=== PATIENT | male | born 1985 | race African-American/Black ===

== ENCOUNTER 2018-10-22 05:06 | Emergency (ER) | payer OTHER, BC ==
[2018-10-22] MEDS: HYDROCODONE/APAP (10/325) TAB PO (05:34)
[2018-10-22] MEDS: ONDANSETRON (ODT) 4 MG TAB ODT (05:34)
[2018-10-22 05:38] LABS: ADD UMIC YES; UR ASCORBIC ACID NEGATIVE (NEGATIVE); UR BILIRUBIN (Dip) NEGATIVE (NEGATIVE); UR BLOOD (Dip) 1+ mg/dL (NEGATIVE); UR CLARITY CLEAR (CLEAR); UR COLOR YELLOW (YELLOW); UR GLUCOSE (Dip) NEGATIVE (NEGATIVE); UR KETONES (Dip) NEGATIVE (NEGATIVE); UR LEUKOCYTE ESTERASE (Dip) NEGATIVE Leu/ul (NEGATIVE); UR MUCUS FEW /HPF (NONE SEEN); UR NITRITE (Dip) NEGATIVE (NEGATIVE); UR RBC 1 /HPF (0-5); UR SPECIFIC GRAVITY (Dip) 1.026 (1.003-1.030); UR SQUAMOUS EPITHELIAL CELL FEW /HPF (FEW); UR TOTAL PROTEIN (Dip) NEGATIVE (NEGATIVE); UR UROBILINOGEN (Dip) NEGATIVE (NEGATIVE); UR WBC 1 /HPF (0-5)
== END 2018-10-22 07:06 | disposition home or self-care (01) ==
LOC: FTE 05:06
DX: N45.2 Orchitis (principal)
CPT/HCPCS: 76870; 81001; 87086; 87591; 99284-25